=== PATIENT | male | born 1970 | race Caucasian/White ===

== ENCOUNTER → 2021-01-31 | Outpatient (CLI) | payer BC | LOC: KOH-I 09:56 | DX: R05 Cough (principal) | CPT/HCPCS: 71046 ==

== ENCOUNTER → 2022-02-10 | Outpatient (CLI) | payer BC | LOC: EXRD 08:09 | DX: R74.01 Elevation of levels of liver transaminase levels (principal) | CPT/HCPCS: 76705 ==